=== PATIENT | female | born 1995 | race Caucasian/White ===

== ENCOUNTER → 2020-09-04 09:41 | Outpatient (BNVA) | payer SELFPAY | PROVIDERS: Visit Provider Dermatology | DX: Z01.89 Encounter for other specified special examinations (principal) ==

== ENCOUNTER → 2022-06-09 15:47 | Outpatient (BNVA) | payer OTHER, SELFPAY | PROVIDERS: PCP Nurse Practitioner; Visit Provider Nurse Practitioner | DX: Z12.4 Encounter for screening for malignant neoplasm of cervix (principal) | CPT/HCPCS: 88175 ==

== ENCOUNTER → 2022-08-08 10:51 | Outpatient (BNVA) | payer OTHER, SELFPAY | PROVIDERS: PCP Nurse Practitioner; Visit Provider Otolaryngology | DX: K13.70 Unspecified lesions of oral mucosa (principal) | CPT/HCPCS: 88305 ==

== ENCOUNTER → 2022-09-23 15:52 | Outpatient (BNVA) | payer OTHER, SELFPAY | PROVIDERS: PCP Nurse Practitioner; Visit Provider Nurse Practitioner Family | DX: R53.83 Other fatigue (principal); R73.9 Hyperglycemia, unspecified; Z13.6 Encounter for screening for cardiovascular disorders; N93.9 Abnormal uterine and vaginal bleeding, unspecified | CPT/HCPCS: 80053; 80061; 82306; 82607; 83036; 83735; 84403; 84439; 84443; 85025 ==

== ENCOUNTER 2022-09-29 15:46 | Outpatient (CLI) | payer OTHER, SELFPAY ==
--- NOTE | 2022-09-29 16:00 | USR_ITS ---
PROCEDURE INFORMATION: Exam: US Pelvis Complete, Transabdominal and US Pelvis, Transvaginal Exam date and time: 09/29/2022 4:30 PM Age: 26 years old Clinical indication: Menstruation abnormalities; Irregular menstruation; Additional info: N93.9 - abnormal uterine and vaginal bleeding, unspecified TECHNIQUE: Imaging protocol: Real-time complete transabdominal and transvaginal pelvic ultrasound with image documentation. Transvaginal imaging was used for better evaluation of the endometrium, adnexa, and/or cervix. COMPARISON: No relevant prior studies available. FINDINGS: Uterus: The uterus measures 7.1 by 3.8 x 3.4 cm. Endometrial stripe is somewhat thickened measuring 1.4 cm which should be correlated with the patient's menstrual cycle. No mass. Nabothian cysts are seen in the cervix. Right ovary/adnexa: The right ovary measures 3.9 by 2.8 x 3.0 cm. There is approximately 2.5 cm simple cyst. No solid mass. Blood flow is demonstrated. Left ovary/adnexa: The left ovary could not be identified. Intraperitoneal space: There is a small amount of free fluid in the cul-de-sac. Urinary bladder: Normal. US/US pelv w/transvag [id number] IMPRESSION: 1. Thickened endometrium which should be correlated with the menstrual cycle. Otherwise normal uterus. 2. Simple cyst in the right ovary. Otherwise normal. The left ovary could not be visualized. 3. Small amount of free fluid in the cul-de-sac.
== END 2022-09-29 15:47 | disposition home or self-care (01) ==
PROVIDERS: PCP Nurse Practitioner; Visit Provider Nurse Practitioner Family
DX: N93.9 Abnormal uterine and vaginal bleeding, unspecified (principal); R93.89 Abnormal findings on diagnostic imaging of other specified body structures; N83.291 Other ovarian cyst, right side
CPT/HCPCS: 76830; 76856; 80053; 80061; 82306; 82607; 83036; 83735; 84403; 84439; 84443; 85025

== ENCOUNTER → 2023-02-12 11:56 | Outpatient (BNVA) | payer OTHER, SELFPAY | PROVIDERS: PCP Nurse Practitioner; Visit Provider Family Medicine | DX: M25.572 Pain in left ankle and joints of left foot (principal) | CPT/HCPCS: 73610 ==

== ENCOUNTER → 2023-11-02 16:21 | Outpatient (BNVA) | payer OTHER, SELFPAY | PROVIDERS: PCP Nurse Practitioner; Visit Provider Nurse Practitioner Family | DX: J02.9 Acute pharyngitis, unspecified (principal) | CPT/HCPCS: 87071; 87400; 87426; 87880 ==

== ENCOUNTER → 2024-06-20 10:43 | Outpatient (BNVA) | payer OTHER, SELFPAY | PROVIDERS: PCP Nurse Practitioner; Visit Provider Clinical Nurse Specialist Adult Health | DX: J06.9 Acute upper respiratory infection, unspecified (principal) | CPT/HCPCS: 87880 ==